=== PATIENT | female | born 1955 | race Caucasian/White ===

== ENCOUNTER 2017-06-21 13:24 | Emergency (ER) | payer MEDICAID ==
[~2017-06-21] VITALS: Ht 160 cm; Wt 49.9 kg
--- NOTE | 2017-06-21 13:24 | Emergency Room Report ---
History of Present Illness General Source: Patient, EMS Present Illness HPI 62-year-old female brought in by EMS with 2 months of abdominal painAcutely worse today however patient cannot qualify what exactly is worse about pain today. Denies fever, chills, or vomiting. Endorses "23 surgeries" history of Crohn's disease and is status post ileostomy. Patient states she has closed ileostomy and self catheters the ostomy site for drainage. Denies any blood or loose stool when self catheterizing. Patient states she was at [facility] last week, was discharged from the ER with short course of Dilaudid, which she already finished. Multiple request made here for similar medication. She states that she has not followed up with a surgeon since the surgeon who placed the ileostomy "retired" patient believes she is On tail end of Crohn's relapse, however is not on steroids or other medications for chronic management of Crohn's. Allergies: Coded Allergies: ASPIRIN (Verified Allergy, Intermediate, 06/21/17) CORTISONE (Verified Allergy, Intermediate, 06/21/17) PENICILLINS (Verified Allergy, Intermediate, 06/21/17) Patient History Past Medical History: other - see HPI Past Surgical History: other - See HPI Pertinent Family History: none Social History: Denies: smoking, alcohol use, drug use Now: No Immunizations: UTD Reviewed Nursing Documentation: PMH: Agreed, PSxH: Agreed Physical Exam Sp02 EP Interpretation: reviewed, normal General Appearance: normal inspection, well appearing, no apparent distress, alert, GCS 15, non-toxic, other - very dramatic, yelling Head: normocephalic, atraumatic Eyes: bilateral eye PERRL, bilateral eye EOMI ENT: normal ENT inspection, hearing grossly normal, normal pharynx, no angioedema, normal voice, TMs + canals normal, uvula midline, moist mucus membranes Neck: normal inspection, full range of motion, supple, thyroid normal, no meningismus, no bony tend Respiratory: normal inspection, lungs clear, normal breath sounds, no rhonchi, no respiratory distress, no retraction, no accessory muscle use, no wheezing, speaking full sentences Cardiovascular #1: regular rate, rhythm, no edema, no JVD, normal capillary refill Gastrointestinal: normal inspection, normal bowel sounds, non tender, soft, no mass, no peritonitis, non-distended, no guarding, no hernia, no pulsatile mass, other - Multiple areas of scarring of abdomen/ Ileosotomy tissue visualized, red , non-ischemic. No sign of infection. Genitourinary: no CVA tenderness Musculoskeletal: normal inspection, back normal, normal range of motion, no calf tenderness, pelvis stable, Adriano's Sign negative Neurologic: normal inspection, alert, oriented x3, responsive, beater engineer helper III-XII nml as tested, motor strength/tone normal, cerebellar normal, normal gait, speech normal Psychiatric: normal inspection, judgement/insight normal, mood/affect normal, no suicidal/homicidal ideation, no delusions Skin: normal inspection, normal color, no rash Lymphatic: normal inspection, no adenopathy Medical Decision Making Diagnostic Impression: Primary Impression: Abdominal pain Qualified Codes: R10.84 - Generalized abdominal pain ER Course Vital signs stable, afebrile Ileostomy site does not look infected abdomen non-ditended, non-peritoneal multiple request for narcotics, strong concern for drug-seeking Was given IM dose of pain medication Advised cannot give Rx for pain medication given she just received Rx last week Gave info for Dr Singh followup as she requested ER course: Patient has remained stable during ED stay. Disposition: Patient is to be discharged to home. Patient is instructed to follow up with their primary care doctor within 5 days. Strict return precautions discussed with patient such as fever, chills, worsening/severe pain, nausea, vomiting, which may indicate severe illness. Patient verbalizes understanding and agrees with plan. Please note that this Emergency Department Report was dictated using [employer] assistant technology software, occasionally this can lead to erroneous entry secondary to interpretation by the dictation equipment Status: improved Disposition: HOME, SELF-CARE MESHA PEMBERTON M.D. Jun 21, 2017 13:24
[2017-06-21] MEDS ORDERED: HYDROmorphone 1mg/ml Carpuject IM ONE (13:45)
[2017-06-21 13:52] VITALS: BP 121/79
[2017-06-21 14:54] VITALS: BP 121/79
== END 2017-06-21 14:57 | disposition home or self-care (01) ==
LOC: EDBD 13:24 → EMR 13:47
DX: R10.9 Unspecified abdominal pain (principal); Z88.0 Allergy status to penicillin; Z88.6 Allergy status to analgesic agent
CPT/HCPCS: 96372; 99283; J1170

== ENCOUNTER 2017-10-30 17:33 | Inpatient (IN) | payer MEDICAID ==
[~2017-10-30] VITALS: Ht 165.1 cm; Wt 54.4 kg
[2017-10-30] MEDS: Morphine Sulfate 4mg/ml Inj IVP ONE ×2 (17:45→18:18)
[2017-10-30] MEDS: Sodium Chloride 500ML 500 ML IV ONE ×2 (17:45→18:18)
[2017-10-30 18:21] LABS: APPEARANCE,URINE CLEAR; BILIRUBIN, URINE NEGATIVE (NEGATIVE); COLOR,URINE PALE YELLOW; GLUCOSE, URINE (UA) 2+ (NEGATIVE); KETONES,URINE NEGATIVE (NEGATIVE); LEUKOCYTE ESTERASE ,URINE 1+ (NEGATIVE); NITRITE,URINE NEGATIVE (NEGATIVE); PH,URINE 6.5 (4.5-8.0); PROTEIN,URINE 1+ (NEGATIVE); UROBILINOGEN,URINE NORMAL MG/DL (0.0-1.0)
[2017-10-30 18:23] VITALS: BP 132/74
[2017-10-30 18:24] LABS: EOSINOPHILS % (AUTO) 0.6 % (0.0-3.0); HEMATOCRIT 30.8 % (37.0-47.0); HEMOGLOBIN 9.7 G/DL (12.0-16.0); LYMPHOCYTES % (AUTO) 25.2 % (20.0-45.0); MEAN CORPUSCULAR VOLUME 76 FL (80-99); MONOCYTES % (AUTO) 6.7 % (1.0-10.0); NEUTROPHILS % (AUTO) 66.5 % (45.0-75.0); PLATELET COUNT 335 K/UL (150-450); RED BLOOD COUNT 4.07 M/UL (4.20-5.40); RED CELL DISTRIBUTION WIDTH 14.5 % (11.6-14.8); WHITE BLOOD COUNT 7.2 K/UL (4.8-10.8)
[2017-10-30 18:44] LABS: ALANINE AMINOTRANSFERASE 18 U/L (12-78); ALBUMIN 3.3 G/DL (3.4-5.0); ALBUMIN/GLOBULIN RATIO 0.7 (1.0-2.7); ALKALINE PHOSPHATASE 136 U/L (46-116); ANION GAP 8 mmol/L (5-15); ASPARTATE AMINO TRANSFERASE 19 U/L (15-37); BILIRUBIN,TOTAL 0.2 MG/DL (0.2-1.0); BLOOD UREA NITROGEN 30 mg/dL (7-18); CALCIUM 11.1 MG/DL (8.5-10.1); CARBON DIOXIDE 33 MMOL/L (21-32); CHLORIDE 93 MMOL/L (98-107); CREATININE 1.7 MG/DL (0.55-1.30); POTASSIUM 2.8 MMOL/L (3.5-5.1); SODIUM 134 MMOL/L (136-145)
[2017-10-30] MEDS ORDERED: LORazepam Inj 2mg/ml 1ml ONE (18:45)
[2017-10-30] MEDS ORDERED: LORazepam Inj 2mg/ml 1ml IV ONE (18:45)
[2017-10-30] MEDS ORDERED: Isovue-300 100ml vial INJ PRN (18:45)
--- NOTE | 2017-10-30 19:05 | Emergency Room Report ---
History of Present Illness General Chief Complaint: Abdominal Pain Source: Patient Present Illness HPI Patient present with complaints of intractable abdominal pain Significant 10 out of 10 nauseated Patient feels lightheaded and weak Denies any diarrhea patient reports that she has not really made any stool she has the KOCK procedure with a stoma and self intubates the stoma in order to relieve her stool Patient has started to feel generally weak Not able to eat as usual Pain is worse with any movement Allergies: Coded Allergies: ASPIRIN (Verified Allergy, Intermediate, 06/21/17) CORTISONE (Verified Allergy, Intermediate, 06/21/17) PENICILLINS (Verified Allergy, Intermediate, 06/21/17) Patient History Past Medical History: see triage record Pertinent Family History: none Last Menstrual Period: na Now: No Reviewed Nursing Documentation: PMH: Agreed; PSxH: Agreed Nursing Documentation-PMH Past Medical History: No History, Except For Hx Gastrointestinal Problems: Yes - CHRONS , internal colostomy Review of Systems All Other Systems: negative except mentioned in HPI Physical Exam Vital Signs Date Time Temp Pulse Resp B/P (MAP) Pulse Ox O2 Delivery O2 Flow Rate FiO2 10/30/17 17:37 98.1 101 18 98 Room Air 98.1 10/30/17 18:23 132/74 Sp02 EP Interpretation: reviewed, normal General Appearance: moderate distress - In severe pain Head: normocephalic, atraumatic Eyes: bilateral eye PERRL, bilateral eye EOMI ENT: dry mucus membranes Neck: full range of motion, supple Respiratory: lungs clear, normal breath sounds Cardiovascular #1: regular rate, rhythm Gastrointestinal: other - Stoma in the right lower abdomen, evidence of multiple previous surgical scars some mild distention also noted, decreased bowel sounds Genitourinary: no CVA tenderness Musculoskeletal: normal inspection Neurologic: alert, oriented x3 Skin: other - Poor skin turgor Lymphatic: no adenopathy Medical Decision Making Diagnostic Impression: Primary Impression: Intractable abdominal pain Additional Impressions: kock pouch Hypokalemia Hyponatremia ER Course With the history exam and presentation, multiple differentials considered, including but not limited to appendicitis, gastritis, cholecystitis, diverticulitis Patient requiring high-dose pain medication Patient had a hypotensive episode during her vomiting as well Appears pale Case is discussed with Dr. Singh Patient has a special procedure with a KOCK pouch patient has also had difficulty obtaining specialty follow-up with recent complications of this area Case is discussed with specialty consultation Patient requiring imaging And further admission Labs Test 10/30/17 18:00 White Blood Count 7.2 K/UL (4.8-10.8) Red Blood Count 4.07 M/UL (4.20-5.40) Hemoglobin 9.7 G/DL (12.0-16.0) Hematocrit 30.8 % (37.0-47.0) Mean Corpuscular Volume 76 FL (80-99) Mean Corpuscular Hemoglobin 23.9 PG (27.0-31.0) Mean Corpuscular Hemoglobin Concent 31.5 G/DL (32.0-36.0) Red Cell Distribution Width 14.5 % (11.6-14.8) Platelet Count 335 K/UL (150-450) Mean Platelet Volume 5.5 FL (6.5-10.1) Neutrophils (%) (Auto) 66.5 % (45.0-75.0) Lymphocytes (%) (Auto) 25.2 % (20.0-45.0) Monocytes (%) (Auto) 6.7 % (1.0-10.0) Eosinophils (%) (Auto) 0.6 % (0.0-3.0) Basophils (%) (Auto) 1.0 % (0.0-2.0) Urine Color Pale yellow Urine Appearance Clear Urine pH 6.5 (4.5-8.0) Urine Specific [place] 1.015 (1.005-1.035) Urine Protein 1+ (NEGATIVE) Urine Glucose (UA) 2+ (NEGATIVE) Urine Ketones Negative (NEGATIVE) Urine Occult Blood Negative (NEGATIVE) Urine Nitrite Negative (NEGATIVE) Urine Bilirubin Negative (NEGATIVE) Urine Urobilinogen Normal MG/DL (0.0-1.0) Urine Leukocyte Esterase 1+ (NEGATIVE) Urine RBC 0-2 /HPF (0 - 2) Urine WBC 2-4 /HPF (0 - 2) Urine Squamous Epithelial Cells Few /LPF (NONE/OCC) Urine Bacteria Few /HPF (NONE) Sodium Level 134 MMOL/L (136-145) Potassium Level 2.8 MMOL/L (3.5-5.1) Chloride Level 93 MMOL/L (98-107) Carbon Dioxide Level 33 MMOL/L (21-32) Anion Gap 8 mmol/L (5-15) Blood Urea Nitrogen 30 mg/dL (7-18) Creatinine 1.7 MG/DL (0.55-1.30) Estimat Glomerular Filtration Rate 30.6 mL/min (>60) Glucose Level 123 MG/DL (74-106) Calcium Level 11.1 MG/DL (8.5-10.1) Total Bilirubin 0.2 MG/DL (0.2-1.0) Aspartate Amino Transf (AST/SGOT) 19 U/L (15-37) Alanine Aminotransferase (ALT/SGPT) 18 U/L (12-78) Alkaline Phosphatase 136 U/L (46-116) Total Protein 8.0 G/DL (6.4-8.2) Albumin 3.3 G/DL (3.4-5.0) Globulin 4.7 g/dL Albumin/Globulin Ratio 0.7 (1.0-2.7) Lipase 69 U/L (73-393) EKG Diagnostic Results Rate: normal Rhythm: NSR ST Segments: no acute changes Rhythm Strip Diag. Results EP Interpretation: yes Rate: 77 Rhythm: NSR, no PVC's, no ectopy CT/MRI/US Diagnostic Results CT/MRI/US Diagnostic Results : Impression CT abdomen pelvis:IMPRESSION: Limited exam without intravenous and oral contrast. Within these limitations: * Postsurgical appearance status post total colectomy and continent type right lower quadrant ileostomy. There is moderate distention with significant stool in the right lower quadrant reservoir. * Question diffuse small bowel wall thickening. Correlate for signs/symptoms of an enteritis. No definite small bowel dilatation suggesting obstruction at this time. * Bladder thickening possibly related to underdistention. Correlate with urinalysis to exclude cystitis. * Moderate hiatal hernia with postsurgical appearance of the stomach. Correlate with surgical history. * Approximately 1.8 cm left adnexal cyst. Correlation with nonemergent pelvic ultrasound recommended. Last Vital Signs Date Time Temp Pulse Resp B/P (MAP) Pulse Ox O2 Delivery O2 Flow Rate FiO2 10/30/17 18:35 98.6 10/30/17 18:23 78 18 132/74 98 Room Air Status: improved Disposition: ADMITTED INPATIENT Condition: Serious Referrals: [facility],REFERRING (PCP) Davidson Gould DO Oct 30, 2017 19:05
[2017-10-30] MEDS ORDERED: AMBIEN10 M1 ORAL (20:59)
[2017-10-30] MEDS ORDERED: ADDERAL20 MG ORAL (20:59)
[2017-10-30] MEDS ORDERED: ARMOUR THYROID15 MG PO (20:59)
[2017-10-30] MEDS ORDERED: HYDROMORPHONE HC4 M1 PO (20:59)
[2017-10-30] MEDS ORDERED: FIORICET1 EA ORAL (20:59)
[2017-10-30 21:05] VITALS: BP 130/75
[2017-10-30 21:15] VITALS: BP 136/69
[2017-10-30] MEDS ORDERED: Zolpidem 5mg tab ORAL PRN (22:45)
[2017-10-30] MEDS: HYDROmorphone 4mg tab ORAL PRN (23:55)
[2017-10-31] VITALS: BP 119/81
[2017-10-31 04:00] VITALS: BP 127/77
[2017-10-31] MEDS: HYDROmorphone 4mg tab ORAL PRN ×5 (05:00→21:58)
[2017-10-31] MEDS ORDERED: THYROID 15 MG ORAL SCH ×3 (06:30→09:00)
--- NOTE | 2017-10-31 07:49 | General Progress Note ---
Progress Note Progress Note This patient has been emailing me for months about her severe abdominal pain and past history of total colectomy and Kock Pouch Continent Ileostomy, but would never talk on the telephone with me. No specific Kock Pouch issues. Abdomen soft, non-tender, multiple scars, stoma of Kock pouch with mucosal prolapse low in RLQ. Labs- anemia, K 2.8, low albumin CT scan done in ER - no report yet Imp. Severe abdominal pain Unknown psychiatric condition History of proctocolectomy and Kock Pouch with normal function of pouch Rec: Replace K - she apparently refused in ER I will review CT scan with radiologist this AM Diego Singh MD Oct 31, 2017 07:49
[2017-10-31 08:00] VITALS: BP 94/54
--- NOTE | 2017-10-31 10:13 | Diagnostic Imaging Report ---
Indication: Abdominal pain Technique: Noncontrast CT of the abdomen and pelvis utilizing automated exposure control. Axial, sagittal and coronal reformats presented. CT dose: Total DLP 492.21 mGycm; CTDI vol 10.45 mGy Comparison: None Findings: Please note that evaluation of the abdominal and pelvic viscera and vascular structures is limited without the use of intravenous and oral contrast. Within these limitations the following observations are made: Mild dependent atelectasis noted in the lung bases. Heart size within normal limits. There is no pericardial effusion. There is hypoattenuation of the blood pool relative to the intraventricular septum suggesting anemia. Correlation with CBC recommended. There is a moderate-sized hiatal hernia. There is postsurgical appearance of the stomach with surgical sutures along the gastric wall. Additional surgical history is recommended. Status post total colectomy. A pouch type continent ileostomy is noted in the right lower quadrant. There is distention and significant stool within the reservoir, which measures up to 13.5 cm AP and 6 cm transverse. There may be some small bowel wall thickening possibly suggesting a enteritis. No definite abnormal small bowel dilatation to suggest high-grade small bowel obstruction at this time. No free intraperitoneal air or fluid. Bladder not visualized and likely surgically absent. Noncontrast evaluation of the liver, spleen, adrenal glands grossly unremarkable. Pancreas not well-visualized on possibly severely atrophic or surgically absent. Kidneys symmetric in size. No urinary tract stone or hydronephrosis bilaterally. There is thickening of the bladder wall which may be related to underdistention. Correlation with urinalysis recommended. Uterus is grossly unremarkable. There is a approximately 1.8 cm left adnexal cystic lesion. There are degenerative changes in the spine and hips. No acute osseous abnormality seen. IMPRESSION: Limited exam without intravenous and oral contrast. Within these limitations: * Postsurgical appearance status post total colectomy and continent type right lower quadrant ileostomy. There is moderate distention with significant stool in the right lower quadrant reservoir. * Question diffuse small bowel wall thickening. Correlate for signs/symptoms of an enteritis. No definite small bowel dilatation suggesting obstruction at this time. * Bladder thickening possibly related to underdistention. Correlate with urinalysis to exclude cystitis. * Moderate hiatal hernia with postsurgical appearance of the stomach. Correlate with surgical history. * Approximately 1.8 cm left adnexal cyst. Correlation with nonemergent pelvic ultrasound recommended. The CT scanner at [facility] is accredited by the [employer] and the scans are performed using protocols designed to limit radiation exposure to as low as reasonably achievable to attain images of sufficient resolution adequate for diagnostic evaluation.
--- NOTE | 2017-10-31 10:14 | Pre-Procedure Note/Attestation ---
Pre-Procedure Note/Attestation Complete Prior to Procedure Planned Procedure: not applicable Procedure Narrative: Kock pouch endoscopy Indications for Procedure Pre-Operative Diagnosis: abdominal pain Attestation I attest that I discussed the nature of the procedure; its benefits; risks and complications; and alternatives (and the risks and benefits of such alternatives ), prior to the procedure, with the patient (or the patient's legal insurance verification representative). I attest that, if there was a reasonable possibility of needing a blood transfusion, the patient (or the patient's legal insurance verification representative) was given the [facility] standardized written summary, pursuant to the Tomer Asher Blood Safety Act ([place] Health and Safety Code # 1645, as amended). I attest that I re-evaluated the patient just prior to the surgery and that there has been no change in the patient's H&P, except as documented below:none Diego Singh MD Oct 31, 2017 10:14
[2017-10-31 12:00] VITALS: BP 102/57
--- NOTE | 2017-10-31 14:09 | General Progress Note ---
Progress Note Progress Note Patient cannot proceed with Kock Pouch endoscopy without anesthesia. Will have to reschedule She now states that she has had 3 Kock pouch endoscopies this year by Colorectal Surgeon in [facility]. Psychiatric illness dilaudid dependency History of gastric sleeve resection 2008 ? Abdominal pain immediately after eating in right side - ?? etiology CT scan negative Plan: will contact Dr. Mcgowan re prior endoscopy findings before performing another one here Diego Singh MD Oct 31, 2017 14:09
[2017-10-31 16:00] VITALS: BP 103/64
--- NOTE | 2017-10-31 16:15 | History and Physical Report ---
DATE OF ADMISSION: 10/30/2017 HISTORY OF PRESENT ILLNESS: This is a 62-year-old female, who has a history of previous Lamb pouch placement. She came to the emergency room for abdominal pain. The patient has a history of chronic abdominal pain and takes Dilaudid 8 mg 6 times a day. She was seen and worked up. She underwent a CT of the abdomen yesterday, which showed status post colectomy status, diffuse bowel wall thickening, nonspecific, and distended thick-walled anastomotic bowel in the right hemipelvis is also nonspecific. There was a right lower quadrant enterostomy and a moderate hiatal hernia. The patient was seen this morning by Dr. Diego Singh and there are plans for possibly a pouch endoscopy later on today or tomorrow. The patient has a prior history of Crohn disease status post "Lamb pouch." MEDICATIONS: Her list of home medications includes [place] Thyroid, Dilaudid, Fioricet, and Ambien. She also takes Adderall fashionable for psych disorder, ADHD, chronic pain, hypothyroidism, and Crohn's disease. ALLERGIES: Listed to aspirin, cortisone, and penicillins. REVIEW OF SYSTEMS: Denies any headaches, hematemesis, melena, or hematochezia. PHYSICAL EXAMINATION: GENERAL: Reveals a 62-year-old female. HEENT: Unremarkable. LUNGS: Clear breath sounds bilaterally with normal heart sounds. ABDOMEN: Soft. There is no edema. There is a colostomy noted. LABORATORY DATA: Lab testing shows hemoglobin 11.7. There is normal CBC and BMP. Potassium is low at 2.8. The patient refused replacement. Creatinine 1.7 and alkaline phosphatase 136. IMPRESSION: 1. Crohn's disease. 2. History of Kock pouch. 3. Rule out pouchitis. 4. Hypothyroidism. 5. Attention deficit disorder. 6. Hypokalemia. 7. Anemia. 8. Borderline hyponatremia. 9. Renal dysfunction with dehydration. DISCUSSION: The patient, at this time, is refusing intravenous fluids and refusing potassium replacement. She only wanted pain medications and I have continued her home medication Dilaudid 8 mg every 4 [address] I discussed with Dr. Diego Singh, who is planning to review the CT and possibly do a Pouch endoscopy. Further discussion with the patient revealed that she has no difficulty catheterizing her pouch and there is no problem with eliminating her waste. I am unsure of the etiology of her pain. I suspect there is a significant psychiatric overlay. I will follow carefully as supervisor varnish. Herman Delacruz M.D. DR: TIARA JOB#: [id number] CC:
[2017-10-31 20:00] VITALS: BP 126/84
[2017-11-01] MEDS: HYDROmorphone 4mg tab ORAL PRN ×4 (02:00→14:27)
--- NOTE | 2017-11-01 09:44 | General Progress Note ---
Progress Note Progress Note Patient very uncooperative regarding intake and output. Abdomen soft, flat Now c/o inability to swallow - has had gastric sleeve resection in the past. Her colorectal surgeon in [place] Dr. Mcgowan is away until later today - I have left a message for him to call me about his Kock Pouch endoscopy and other findings on this patient who seems to be "doctor shopping". Imp. No acute surgical problem at this time difficulty swallowing - work-up per Diego Perdue MD Nov 01, 2017 09:44
[2017-11-01] MEDS ORDERED: NS 275ml ONE (10:01)
--- NOTE | 2017-11-01 10:03 | Pulmonology Progress Note ---
Assessment/Plan Assessment/Plan 1. Crohn's disease. 2. History of Kock pouch. 3. Rule out pouchitis. Refused pouchogram or endoscopy 4. Hypothyroidism. 5. Attention deficit disorder. 6. Hypokalemia. refuses replacement. 7. Anemia. 8. Borderline hyponatremia. 9. Renal dysfunction with dehydration. Refuses IV fluids or labs. DISCUSSION: The patient, at this time, is refusing intravenous fluids and refusing potassium replacement. She only wants pain medications and I have continued her home medication Dilaudid 8 mg every [address] Singh. DC home Subjective Interval Events: Refuses all procedures and fluids. Demanding pain meds Constitutional: Reports: no symptoms HEENT: Repors: no symptoms Respiratory: Reports: no symptoms Cardiovascular: Reports: no symptoms Gastrointestinal/Abdominal: Reports: no symptoms Genitourinary: Reports: no symptoms Allergies: Coded Allergies: ASPIRIN (Verified Allergy, Intermediate, 06/21/17) CORTISONE (Verified Allergy, Intermediate, 06/21/17) PENICILLINS (Verified Allergy, Intermediate, 06/21/17) Objective Last 24 Hour Vital Signs Date Time Temp Pulse Resp B/P (MAP) Pulse Ox O2 Delivery O2 Flow Rate FiO2 10/31/17 21:00 Room Air 10/31/17 20:00 98.4 81 19 126/84 (98) 99 98.4 10/31/17 18:59 98.8 10/31/17 18:00 98.8 10/31/17 16:00 97.3 72 22 103/64 (77) 99 97.3 10/31/17 13:46 98.8 10/31/17 12:00 98.8 84 22 102/57 (72) 98 98.8 Intake and Output 10/31/17 11/01/17 19:00 07:00 Intake Total 240 ml 360 ml Output Total 1200 ml 1500 ml Balance -960 ml -1140 ml Intake Oral 240 ml 360 ml Output Urine Total 550 ml Other 1200 ml 950 ml # Voids 6 General Appearance: no acute distress HEENT: normocephalic Respiratory/Chest: chest wall non-tender, lungs clear Cardiovascular: normal peripheral pulses, normal rate Current Medications Medications (Trade) Dose Ordered Sig/Xiomy Route PRN Reason Start Time Stop Time Status Last Admin Dose Admin Acetaminophen/ Butalbital/ Caffeine (Fioricet) 1 tab Q4H PRN ORAL Migraine 10/30/17 22:45 11/29/17 22:44 Hydromorphone HCl (Dilaudid) 8 mg Q4H PRN ORAL Severe Pain (Pain Scale 7-10) 10/31/17 09:30 11/07/17 09:29 11/01/17 06:00 Iopamidol (Isovue-300 100ml) 100 ml NOW PRN INJ Radiology Procedure 10/30/17 18:45 11/01/17 23:59 Ondansetron HCl (Zofran ODT) 4 mg Q6H PRN ORAL Nausea & Vomiting 11/01/17 00:15 12/01/17 00:14 Ondansetron HCl (Zofran) 4 mg Q6H PRN IVP Nausea & Vomiting 11/01/17 00:15 12/01/17 00:14 Thyroid ([place] Thyroid) 15 mg DAILY@0630 ORAL 10/31/17 07:00 11/30/17 06:29 Zolpidem Tartrate (Ambien) 5 mg HSPRN PRN ORAL Insomnia 10/30/17 22:45 11/06/17 22:44 Herman Delacruz MD Nov 01, 2017 10:03
[2017-11-01 12:10] VITALS: BP 116/55
--- NOTE | 2017-11-02 09:02 | Discharge Summary ---
Discharge Summary Discharge Summary _ DATE OF ADMISSION: 10/30/2017 DATE OF DISCHARGE: 11/01/2017 REASON FOR ADMISSION: 62 years old female with past medical history of Crohn disease, status post total colectomy , Kock pouch continent ileostomy, history of gastric sleeve resection, presented to emergency room with intractable abdominal pain. Patient was taking significant doses of oral Dilaudid at home for pain. CT of the abdomen ,done in emergency room, showed status post colectomy, diffuse bowel wall thickening, distended thick-walled anastomotic bowel in the right hemipelvis, nonspecific. Right lower quadrant enterostomy and moderate hiatal hernia. Patient seen earlier in the emergency department by surgeon Dr. Singh, who a planned for pouch endoscopy later that day. On physical examination abdomen was soft and benign. Laboratory workup revealed hemoglobin 9.7 hematocrit 30.8 . Potassium 2.8 ,sodium 134. BUN 38, creatinine 1.7. No leukocytosis. Urinalysis without evidence of infection. EKG revealed no acute ischemic changes. Patient admitted with diagnoses of Crohn disease, Kock pouch continent ileostomy, rule out pouchitis, hypothyroidism, hypokalemia, anemia, renal dysfunction with dehydration, borderline hyponatremia, attention deficit disorder. CONSULTANTS: surgery Dr. Singh [facility] COURSE: Patient admitted to the floor . IV hydration ordered, which patient declined along with potassium replacement. Surgeon clsoely followed. Patient only requested pain medication. Surgeon plan for pouch endoscopy , however patient declined procedure as well. According to patient, she had multiply pouch endoscopy in the past by colorectal surgeon in [place], she followed as outpatient. The surgeon, who performed the procedure , was out of [place] and was unavailable to discuss the results of pouch endoscopy. CT of the abdomen and pelvis was negative. Patient had no difficulty to catheterize Kock pouch. No nausea, vomiting, tolerated diet. Patient was extremely noncompliant and declined all treatment prescribed. No acute surgical issues. Patient was stable for discharge home and follow up with outpatient colorectal surgeon FINAL DIAGNOSES: Crohn disease Continent ileostomy with a Kock pouch, rule out pouchitis Hypokalemia Renal dysfunction with dehydration Borderline hyponatremia Anemia Hypothyroidism Attention deficit disorder Psychiatric illness Dilaudid dependency History of gastric sleeve resection DISCHARGE MEDICATIONS: See Medication Reconciliation list. DISCHARGE INSTRUCTIONS: Patient was discharged home. Follow up with colorectal surgeon, whom she had seen in the past. I have been assigned to dictate discharge summary for this account. I was not involved in the patient's management. Faith Walker NP Nov 02, 2017 09:02
== END 2017-11-01 16:30 | disposition home or self-care (01) | DRG 251 ==
LOC: EMR 18:00 → EDBEDREQ 19:12 → 3E 19:52
DX: R10.9 Unspecified abdominal pain (principal); F11.20 Opioid dependence, uncomplicated; K50.90 Crohn's disease, unspecified, without complications; Z43.2 Encounter for attention to ileostomy; K91.850 Pouchitis; G89.29 Other chronic pain; K44.9 Diaphragmatic hernia without obstruction or gangrene; Z88.6 Allergy status to analgesic agent; Z88.0 Allergy status to penicillin; Z88.8 Allergy status to other drugs, medicaments and biological substances; E03.9 Hypothyroidism, unspecified; F90.9 Attention-deficit hyperactivity disorder, unspecified type; E87.6 Hypokalemia; D64.9 Anemia, unspecified; E86.0 Dehydration; N28.9 Disorder of kidney and ureter, unspecified; Z90.49 Acquired absence of other specified parts of digestive tract; F99 Mental disorder, not otherwise specified; Z98.84 Bariatric surgery status; Z91.19 Patient's noncompliance with other medical treatment and regimen
CPT/HCPCS: 36415; 74176; 80053; 81003; 83690; 85025; 93005; 93970; J2405